=== PATIENT | male | born 1990 | race Caucasian/White ===

== ENCOUNTER 2016-05-24 23:15 | Emergency (ER) | payer OTHER ==
[~2016-05-24] VITALS: Ht 170.2 cm; Wt 86.2 kg
[2016-05-24 23:19] VITALS: BP 161/88
--- NOTE | 2016-05-24 23:32 | NUR ---
PT BROUGHT TO BED 5
--- NOTE | 2016-05-24 23:38 | NUR ---
PT PRESENT TO ER W/ C/O LUMP ON RIGHT SIDE OF THROAT OR NECK SINCE THIS AFTERNOON, PAIN 5/. C/O COUGH AND RUNNY NOSE. DENIES N/V/D
--- NOTE | 2016-05-25 | NUR ---
Dr. Rivers evaluating patient at bedside.
[2016-05-25 00:15] VITALS: BP 139/82
--- NOTE | 2016-05-25 00:15 | NUR ---
Patient discharged with v/s stable. Written and verbal after care instructions given and explained. Patient alert, oriented and verbalized understanding of instructions. Ambulatory with steady gait. All questions addressed prior to discharge. ID band removed. Patient advised to follow up with PMD. Rx of DEXTROMETHORPHAN HYDROBROMIDE/PROMETHAZINE HYDROCHLORIDE 15MG-6.5MG/5ML SYRUP, AMOXICILLIN 500MG PO given. Patient educated on indication of medication including possible reaction and side effects. Opportunity to ask questions provided and answered.
== END 2016-05-25 00:15 | disposition home or self-care (01) ==
LOC: MED 23:15
DX: J03.90 Acute tonsillitis, unspecified (principal); R03.0 Elevated blood-pressure reading, without diagnosis of hypertension; M54.2 Cervicalgia

== ENCOUNTER 2018-03-16 00:22 | Emergency (ER) | payer OTHER ==
[~2018-03-16] VITALS: Ht 170.2 cm; Wt 93.0 kg
[2018-03-16 00:27] VITALS: BP 137/100
[2018-03-16] MEDS ORDERED: KETOROLAC 30 MG/ML VIAL IM ONE (00:50)
[2018-03-16 03:13] VITALS: BP 117/94
== END 2018-03-16 03:13 | disposition home or self-care (01) ==
LOC: MED 00:22
DX: M25.552 Pain in left hip (principal)
CPT/HCPCS: 72192; 96372; 99284; J1885

== ENCOUNTER 2019-03-29 20:36 | Emergency (ER) | payer OTHER ==
[~2019-03-29] VITALS: Ht 170.2 cm; Wt 99.8 kg
[2019-03-29 20:51] VITALS: BP 152/104
--- NOTE | 2019-03-29 20:58 | NUR ---
28 Y/O MALE STATES HE WAS SEEN AT URGENT CARE FOR BLOOD TEST RESULTS AND HIV BLOOD WORK CAME BACK "ABNORMAL". PT STATES HE WANTS TO BE TESTED FOR HIV. PT CALM AND SITTING IN BED. VSS MEDHX: HTN ALLERGIES: NKA
--- NOTE | 2019-03-29 21:28 | NUR ---
DR DE LOS SANTOS AT PT BEDSIDE EXAMINING PT
--- NOTE | 2019-03-29 21:50 | NUR ---
Patient discharged with v/s stable. Written and verbal after care instructions given and explained. Patient verbalized understanding. Ambulatory with steady gait. All questions addressed prior to discharge. Advised to follow up with PMD.
== END 2019-03-29 21:49 | disposition home or self-care (01) ==
LOC: MED 20:36
DX: Z11.4 Encounter for screening for human immunodeficiency virus [HIV] (principal); I10 Essential (primary) hypertension
CPT/HCPCS: 99283

== ENCOUNTER 2019-06-18 10:12 | Emergency (ER) | payer OTHER ==
[~2019-06-18] VITALS: Ht 170.2 cm; Wt 98.9 kg
[2019-06-18 10:36] VITALS: BP 125/92
--- NOTE | 2019-06-18 11:32 | NUR ---
CALL FOR BED, NO ANSWER.
--- NOTE | 2019-06-18 11:48 | NUR ---
PATIENT LEFT WITHOUT BEING SEEN BY DR. ROSAS. NO FURTHER CARE PROVIDED FOR PATIENT.
[2019-06-18 11:49] VITALS: BP 125/92
== END 2019-06-18 11:32 | disposition left against medical advice (07) ==
LOC: MED 10:12
DX: M79.671 Pain in right foot (principal); Z53.21 Procedure and treatment not carried out due to patient leaving prior to being seen by health care provider

== ENCOUNTER 2019-09-18 02:07 | Emergency (ER) | payer OTHER ==
[~2019-09-18] VITALS: Ht 170.2 cm; Wt 95.3 kg
[2019-09-18 02:12] VITALS: BP 159/113
--- NOTE | 2019-09-18 02:20 | NUR ---
PT AMBULATED TO BED 11 WITH STEADY GAIT
--- NOTE | 2019-09-18 02:25 | NUR ---
PT 28 Y/O MALE BIB SELF FOR C/O UPPER BACK PAIN 09/24 X 2 MONTHS. PT STATES PAIN IS CONTINOUS AND RADIATES TO R SHOULDER. PT STATES HE TAKES IBUPROFEN AND NORCO AT HOME WITH INEFFECTIVE RESULTS. PT HAS STEADY GAIT, FULL ROM INTACT. PT CMS INTACT. PT STATES HE ALSO HAS NUMBNESS AND TINGLING OF L ARM AND FINGERS INTERMITTENTLY X 2 WEEKS. CURRENTLY CMS INTACT. PT BP: 159/113. PT STATES HE HAS HX OF HTN AND IS NON COMPLIANT WITH MEDICATIONS. PT LAYING IN BED AND POSITIONED FOR COMFORT. BED LOCKED AND IN LOWEST POSITION. MEDHX: HTN, HERNAITED DICS IN LOW BACK ALLERGIES: NKA
[2019-09-18] MEDS ORDERED: KETOROLAC 30 MG/ML VIAL IM ONE (02:45)
--- NOTE | 2019-09-18 02:46 | NUR ---
TORADOL 30MG GIVEN IM FOR 6/10 PAIN IN UPPER BACK. PT TOLERATED WELL.
--- NOTE | 2019-09-18 02:49 | NUR ---
PT TAKEN TO XRAY VIA W/C.
--- NOTE | 2019-09-18 03:02 | NUR ---
PT RETURN FROM XRAY
--- NOTE | 2019-09-18 03:02 | NUR ---
PT RETURNED FROM XRAY VIA W/C. PT AMBULATED TO BED WITH STEADY GAIT.
--- NOTE | 2019-09-18 03:19 | NUR ---
PT AMBULATED TO RESTROOM WITH STEADY GAIT.
--- NOTE | 2019-09-18 03:38 | NUR ---
PT BP: 146/103. ERMD MADE AWARE. PAIN REDUCED FROM 6/10 TO 4/10 IN UPPER BACK. PT REPOSITIONED IN BED FOR COMFORT. BED LOCKED AND IN LOWEST POSITION.
[2019-09-18 04:05] VITALS: BP 146/103
--- NOTE | 2019-09-18 04:05 | NUR ---
Patient discharged with v/s stable. Written and verbal after care instructions given and explained. Patient alert, oriented and verbalized understanding of instructions. Ambulatory with steady gait. All questions addressed prior to discharge. ID band removed. Patient advised to follow up with PMD. Rx of MOTRIN, CYCLOBENZAPRINE HYDROCHLORIDE given. Patient educated on indication of medication including possible reaction and side effects. Opportunity to ask questions provided and answered.
== END 2019-09-18 04:05 | disposition home or self-care (01) ==
LOC: MED 02:07
DX: M54.6 Pain in thoracic spine (principal); I10 Essential (primary) hypertension; M50.022 Cervical disc disorder at C5-C6 level with myelopathy; M51.27 Other intervertebral disc displacement, lumbosacral region; R20.2 Paresthesia of skin
CPT/HCPCS: 72050; 72072; 96372; 99284; J1885